=== PATIENT | female | born 1970 | race African-American/Black ===

== ENCOUNTER 2016-10-17 10:03 | Emergency (ER) | payer SELFPAY ==
[2016-10-17] MEDS ORDERED: MORPHINE 4 MG/ML SYR ONE (10:58)
[2016-10-17] MEDS ORDERED: ONDANSETRON ODT 4 MG TAB ONE (10:58)
== END 2016-10-17 11:53 | disposition home or self-care (01) ==
LOC: ER 10:03
DX: M25.511 Pain in right shoulder (principal); Z76.0 Encounter for issue of repeat prescription; M54.12 Radiculopathy, cervical region; M19.011 Primary osteoarthritis, right shoulder; S16.1XXA Strain of muscle, fascia and tendon at neck level, initial encounter; Z79.899 Other long term (current) drug therapy
CPT/HCPCS: 96372